=== PATIENT | male | born 1995 | race African-American/Black ===

== ENCOUNTER 2022-05-13 18:09 | Emergency (ER) | payer BC, SELFPAY ==
[2022-05-13 18:17] VITALS: BP 130/73; PULSE 82; RESP 18; TEMP 36.4; O2SAT 100
--- NOTE | 2022-05-13 19:46 | ED.WOUNDLAC ---
HPI - Wound/Laceration General Chief Complaint: Wound/Laceration <Rhianna Marina PA-C - Last Filed: 05/13/22 21:29> Stated Complaint: spider bite -inner thigh <HUANG Powers Last Filed: 05/13/22 21:29> Time Seen by Provider: 05/13/22 18:34 <HUANG Powers Last Filed: 05/13/22 21:29> Source: patient <HUANG Powers Last Filed: 05/13/22 21:29> Mode of arrival: ambulatory <HUANG Powers Last Filed: 05/13/22 21:29> Limitations: no limitations <HUANG Powers Last Filed: 05/13/22 21:29> History of Present Illness HPI narrative: Patient is a 26-year-old male who presents the ED with report of an abscess to his left mid medial inner thigh. Patient reports he woke up 3 days ago and noticed a small bump in his left inner thigh. It has since become increasingly swollen, red, tender. He states he has felt like there has been some drainage from it, but he has not seen any. He thought he may have been bit by spider, but denied actually seeing or feeling any spiders. He has not been outside in the [place] or exposed to ticks. Patient denies any fevers, numbness, injury. He has not required anything for pain. No history of abscesses. <HUANG Powers Last Filed: 05/13/22 21:29> Related Data Allergies/Adverse Reactions: Allergies Allergy/AdvReac Type Severity Reaction Status Date / Time No Known Allergies Allergy Verified 05/13/22 18:42 <HUANG Powers Last Filed: 05/13/22 21:29> Review of Systems Review of Systems: CONSTITUTIONAL: Denies fever, chills, or sweats. GASTROINTESTINAL: Denies nausea, vomiting. SKIN: See HPI. MUSCULOSKELETAL: Denies back pain, joint pain, or myalgia. NEUROLOGIC: Denies tingling, numbness, or weakness. <Rhianna Marina PA-C - Last Filed: 05/13/22 21:29> All systems reviewed & are unremarkable except as noted in HPI and below <Rhianna Marina PA-C - Last Filed: 05/13/22 21:29> PMFSH Past Medical History Medical History: Medical History Gastroesophageal reflux disease without esophagitis <Rhianna Marina PA-C - Last Filed: 05/13/22 21:29> Surgical History Surgical History: Surgical History No pertinent past surgical history <Rhianna Marina PA-C - Last Filed: 05/13/22 21:29> Family History Family History: Family History Father Hypertension Mother Family history of malignant neoplasm <Rhianna Marina PA-C - Last Filed: 05/13/22 21:29> Social History Social History: Social History Smoking status: Former smoker Smoking end date: 02/24/17 Alcohol intake: current <Rhianna Marina PA-C - Last Filed: 05/13/22 21:29> Exam Narrative: GENERAL: Well appearing, well-nourished, non-toxic, in no acute distress. HEAD: Normocephalic, atraumatic. NECK: Supple. No adenopathy, no masses. RESPIRATORY: Airway patent, respirations nonlabored. Clear to auscultation bilaterally, no rales, rhonchi, wheezing. CARDIOVASCULAR: Regular rate and rhythm without murmurs, rubs, or gallops. Peripheral pulses 2+ and equal bilaterally. MUSCULOSKELETAL: Moves all extremities. Strength/ROM intact without gross deformities. SKIN: Warm, dry, normal color. Quarter-sized raised abscess to left medial mid thigh, tender to palpation. Central pustule with underlying fluctuance. Fist-sized region of induration underlying abscess, surrounding erythema, minimally warm to touch. No significant streaking erythema. No erythema or warmth closer to genital region/proximal thigh. No active drainage. NEURO: A&O X3. Speech clear. Cranial nerves II-XII grossly intact. Steady gait. No ataxic movem
[2022-05-13] MEDS: TETANUS,DIPHTHERIA,AC PERTUSSIS ADULT (0.5 ML) BOOSTRIX IM (20:03)
[2022-05-13] MEDS: SULFAMETHOXAZOLE/TRIMETHOPRIM 800/160 MG DS TABLET 1 TAB PO (20:03)
== END 2022-05-13 20:26 | disposition home or self-care (01) ==
PROVIDERS: Emergency Provider Physician Assistant
DX: L02.416 Cutaneous abscess of left lower limb (principal); K21.9 Gastro-esophageal reflux disease without esophagitis; Z23 Encounter for immunization
CPT/HCPCS: 10060; 87070; 87147; 87181; 87186; 87205; 90715; 99283; A9270